=== PATIENT | male | born 1995 | race Caucasian/White ===

== ENCOUNTER 2022-11-01 11:35 | Emergency (ER) | payer SELFPAY ==
[2022-11-01 11:43] VITALS: BP 139/89; PULSE 87; RESP 16; TEMP 36.7; O2SAT 99
--- NOTE | 2022-11-01 11:45 | ECG_ITS ---
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 Measurements Intervals [place] Rate: 83 P: 74 MS: 140 QRS: 82 QRSD: 82 T: 50 QT: 342 QTc: 403 Interpretive Statements SINUS RHYTHM POSSIBLE RIGHT VENTRICULAR CONDUCTION DELAY [RSR (QR) IN V1/V2] No previous ECG available for comparison Electronically Signed On 11-01-2022 16:52:37 CDT by Pau Bang M.D. [id number]
--- NOTE | 2022-11-01 13:53 | XR_ITS ---
WS: [id number] XR chest 2V* [id number] REASON FOR EXAM: cp FINDINGS: The heart and the mediastinum are within normal limits. Calcified granulomatous disease in both hemithoraces. No active pulmonary parenchymal or pleural disease. Mild mid thoracic scoliosis convex right. XR/XR chest 2V* [id number] IMPRESSION: No acute chest abnormality.
--- NOTE | 2022-11-01 14:12 | ED_ITS ---
HPI - Chest Pain General: Chief Complaint: Chest Pain Stated Complaint: chest pain Time Seen by Provider: 11/01/22 13:53 History of Present Illness: Patient is a 27-year-old male comes to the ED with chest pain. Patient says chest pain has been going on now for about 2 weeks. He says the pain is constant and he describes it as a sharp throbbing pain that occurs both on the left and right side of his chest. Laying down causes worsening pain. He denies any other worsening or improving factors. He says he had an episode of chest pain like this before last year and it just went away on its own. Denies any known injury or trauma. Associated symptoms: Deny abdominal pain, dyspnea, fever(s), nausea, palpitations or vomiting Review of Systems Const: Denies: fever(s), chills or fatigue Eyes: Denies: change in vision or eye discomfort ENMT: Denies: throat pain, odynophagia, nasal discharge or nasal congestion Card: Reports: chest pain; Denies: palpitations, edema, swelling of feet/ankles, dyspnea on exertion or orthopnea Resp: Denies: dyspnea, productive cough or non-productive cough GI: Denies: abdominal pain, nausea, vomiting, diarrhea, constipation or hematochezia : Denies: flank pain, difficulty urinating, dysuria or hematuria Musc: Denies: neck pain, back pain or extremity swelling Skin/Breast: Denies: rash or new lesions Neuro: Denies: headache(s), numbness in extremities or weakness in extremities Physical Exam Const: COMMON NORMALS: patient oriented x3 HENMT: COMMON NORMALS: normocephalic HEAD & SCALP: normocephalic MOUTH: Normal oral and palatal mucosa present THROAT: posterior oropharynx normal and uvula midline Neck/C-Spine: COMMON NORMALS: supple GENERAL: Yes normal visual inspection Chest: CHEST: No tenderness Resp: COMMON NORMALS: normal respiratory effort, No retractions, No use of accessory muscles and clear to auscultation bilaterally AUSCULTATION: clear to auscultation bilaterally Cardio: COMMON NORMALS: regular rate, regular rhythm, S1 normal heart sound present, S2 normal heart sound present, No gallops present (Cardio), No clicks present (Cardio), No murmurs present (Cardio) and Peripheral pulses 2+ throughout RATE: regular rate RHYTHM: regular rhythm HEART SOUNDS: S1 normal heart sound present and S2 normal heart sound present PERIPHERAL PULS ES: Peripheral pulses 2+ throughout GI: COMMON NORMALS: Normal to inspection, nondistended, normoactive bowel sounds present, Soft to palpation, non-tender and no masses PALPATION: Yes Soft to palpation : COMMON NORMALS: Yes no CVA tenderness BLADDER/KIDNEY EXAM: Yes no CVA tenderness Back/Pelvis: COMMON NORMALS: no CVA tenderness Extremity: COMMON NORMALS: normal to inspection Neuro: COMMON NORMALS: patient oriented x3 GAIT: Yes Normal gait present Skin: GENERAL SKIN EXAM: dry skin Course Vital Signs: Vital signs: Vital Signs Temperature 98.0 F 11/01/22 11:43 Pulse Rate 87 11/01/22 11:43 Respiratory Rate 16 11/01/22 11:43 Blood Pressure 139/89 11/01/22 11:43 Pulse Oximetry 99 11/01/22 11:43 Oxygen Delivery Me thod Room Air 11/01/22 11:43 MDM - Chest Pain Medical Decision Making Patient is a 27-year-old male comes to the ED with chest pain. Patient says chest pain has been going on now for about 2 weeks. He says the pain is constant and he describes it as a sharp throbbing pain that occurs both on the left and right side of his chest. Laying down causes worsening pain. He denies any other worsening or improving factors. He says he had an episode of chest pain like this before last year and it just went away on its own. Denies any known injury or trauma. Vitals stable. Exam of patient is benign and he appears nontoxic in no acute distress or pain. Labs are unremarkable. Baseline troponin was normal. EKG showed normal sinus rhythm with no ST segment elevation or depression seen. Chest x-ray showed no acute findings. Patient was stable for discharge home and diagnosed with atypical chest pain. He was sent home with a prescription for Pepcid. Return ED precautions given. Follow- up with PCP in the next week for reevaluation. Patient understood and agreed with plan. Lab Data I reviewed the patient's lab results. 11/01/22 14:20 11/01/22 14:20 Radiology Impressions Chest X-Ray 11/01/22 13:53 IMPRESSION: No acute chest abnormality. Laboratory Results WBC 12.9 10^3/uL (4.0-10.0) H 11/01/22 14:20 RBC 4.99 10^6/uL (4.1-5.3) 11/01/22 14:20 Hgb 16.0 g/dL (11.7-16.6) 11/01/22 14:20 Hct 46.5 % (42.0-52.0) 11/01/22 14:20 MCV 93.2 fl (80-94) 11/01/22 14:20 MCH 32.1 pg (28.0-34.0) 11/01/22 14:20 MCHC 34.4 g/dL (30.0-36.0) 11/01/22 14:20 RDW 12.4 % (12.1-15.1) 11/01/22 14:20 Plt Count 301 10^3/cmm (130-400) 11/01/22 14:20 MPV 9.8 fL (7.4-10.4) 11/01/22 14:20 Neut % (Auto) 80.1 % 11/01/22 14:20 Lymph % (Auto) 12.7 % 11/01/22 14:20 [place] % (Auto) 6.4 % 11/01/22 14:20 Eos % (Auto) 0.3 % 11/01/22 14:20 Baso % (Auto) 0.3 % 11/01/22 14:20 Neut # (Auto) 10.34 10^3/uL (1.8-7.7) H 11/01/22 14:20 Lymph # (Auto) 1.6 10^3/uL (0.8-4.8) 11/01/22 14:20 [place] # (Auto) 0.8 10^3/uL (0.2-0.9) 11/01/22 14:20 Eos # (Auto) 0.0 10^3/uL (0.0-0.8) 11/01/22 14:20 Baso # (Auto) 0.0 10^3/uL (0.0-0.1) 11/01/22 14:20 Nucleated RBC % (auto) 0 % 11/01/22 14:20 Nucleated RBCs # 0.0 /100WBC 11/01/22 14:20 Sodium 139 mmol/L (136-145) 11/01/22 14:20 Potassium 3.9 mmol/L (3.5-5.1) 11/01/22 14:20 Chloride 101 mmol/L (98-107) 11/01/22 14:20 Carbon Dioxide 27 mmol/L (22-29) 11/01/22 14:20 Anion Gap 14.9 (5-19) 11/01/22 14:20 BUN 11 mg/dL (6-20) 11/01/22 14:20 Creatinine 0.8 mg/dL (0.7-1.2) 11/01/22 14:20 GFR Calculation 117.8 mL/min (90-130) 11/01/22 14:20 Glucose 109 mg/dL (65-115) 11/01/22 14:20 Calculated Osmolality 288 mOsm/kg (285-295) 11/01/22 14:20 Calcium 9.7 mg/dL (8.5-10.5) 11/01/22 14:20 Troponin T Gen 5 ng/L 6 ng/L (0-15) 11/01/22 14:20 EKG Data EKG 1: EKG interpretation date: 11/01/22 Interpretation: Normal sinus rhythm, 83 bpm, no ST segment elevation or depression seen. Discharge Plan Discharge Patient Disposition: Home Clinical Impression: Atypical chest pain Condition: Stable Prescriptions: New Pepcid 20 mg tablet 20 mg PO BID 42 Days Qty: 84 0RF Discharge Orders: Discharge ED (Routine); Ordered 11/01/22 Ordered By: Ken Yanez Discharge Diet: Regular Discharge Activity: Increase activity as tolerated Patient Instructions: Noncardiac Chest Pain (ED) Activity Restrictions/Additional Instructions: Follow-up with medical provider as directed in the next 7 to 10 days for reevaluation. Take medications as prescribed. Return to the ER or your medical provider if condition worsens. Please read and understand discharge instructi ons. Thank you for choosing [facility] for your healthcare needs today. Please realize this is an emergency room and that we are providing you with a medical screening exam and this may not be complete and all inclusive of all the testing and or work up that you may need to determine your ailment or severity of your illness. It is very important that you follow up as instructed or that you return to the Emergency Department should you have concerns or if your condition changes or worsens in any way. Coding Level of Care Code ED Steam Shovel Operating Engineer for Toñito Dixon
[2022-11-01] MEDS: ketorolac 60 mg/2 mL INJ IM (14:18)
[2022-11-01 14:38] LABS: Basophils % 0.3 %; Eosinophils % 0.3 %; Hematocrit 46.5 % (42.0-52.0); Lymphocytes # 1.6 10^3/uL (0.8-4.8); Lymphocytes % 12.7 %; Mean Corpuscular HGB Conc 34.4 g/dL (30.0-36.0); Mean Corpuscular Hemoglobin 32.1 pg (28.0-34.0); Mean Corpuscular Volume 93.2 fl (80-94); Mean Platelet Volume 9.8 fL (7.4-10.4); Monocytes # 0.8 10^3/uL (0.2-0.9); Monocytes % 6.4 %; Neutrophils # 10.34 10^3/uL (1.8-7.7); Neutrophils % 80.1 %; Nucleated Red Blood Cells % 0 %; Platelet Count 301 10^3/cmm (130-400); Red Blood Count 4.99 10^6/uL (4.1-5.3); Red Cell Distribution Width 12.4 % (12.1-15.1); White Blood Count 12.9 10^3/uL (4.0-10.0)
--- NOTE | 2022-11-01 14:46 | PC.NURSE ---
Addendum entered by Del Denis RN 11/01/22 14:46: out with radiology Original Note: patient is not in room
[2022-11-01 14:53] LABS: Anion Gap 14.9 (5-19); Blood Urea Nitrogen 11 mg/dL (6-20); Calcium 9.7 mg/dL (8.5-10.5); Carbon Dioxide 27 mmol/L (22-29); Chloride 101 mmol/L (98-107); Glomerular Filtration Rate 117.8 mL/min (90-130); Glucose 109 mg/dL (65-115); Osmolality Calculated 288 mOsm/kg (285-295); Potassium 3.9 mmol/L (3.5-5.1); Sodium 139 mmol/L (136-145)
[2022-11-01 14:58] LABS: Troponin T (5th) Once 6 ng/L (0-15)
--- NOTE | 2022-11-05 12:04 | DCPLANNER ---
recreation establishment manager called patient due to no primary care physician - no answer at this time
== END 2022-11-01 15:46 | disposition home or self-care (01) ==
PROVIDERS: Emergency Provider Physician Assistant
DX: R07.89 Other chest pain (principal)
CPT/HCPCS: 36415; 71046; 80048; 84484; 85025; 93005; 96372; 99285; J1885

== ENCOUNTER 2024-08-14 18:35 | Emergency (ER) | payer SELFPAY ==
--- NOTE | 2024-08-14 18:36 | XRR_ITS ---
PROCEDURE INFORMATION: Exam: XR Abdomen Exam date and time: 08/14/2024 6:44 PM Age: 28 years old Clinical indication: Constipation TECHNIQUE: Imaging protocol: Radiologic exam of the abdomen. Views: Frontal supine view of the abdomen. 1 View. COMPARISON: CR (CHEST, ) 08/14/2024 6:43 PM FINDINGS: Gastrointestinal tract: Normal. No bowel dilation. Bones/joints: Unremarkable. XR/XR KUB [id number] IMPRESSION: No acute findings.
--- NOTE | 2024-08-14 18:36 | XRR_ITS ---
PROCEDURE INFORMATION: Exam: XR Chest Exam date and time: 08/14/2024 6:43 PM Age: 28 years old Clinical indication: Pain; Chest pressure; Additional info: Cp TECHNIQUE: Imaging protocol: Radiologic exam of the chest. Views: 1 view. COMPARISON: CR XR chest 2V* [id number] 11/01/2022 2:44 PM FINDINGS: Lungs: Unremarkable. No consolidation. Pleural spaces: Unremarkable. No pleural effusion. No pneumothorax. Heart/Mediastinum: Unremarkable. No cardiomegaly. Bones/joints: Unremarkable. XR/XR chest 1V portable [id number] IMPRESSION: No acute findings.
--- NOTE | 2024-08-14 18:39 | ECG_ITS ---
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 Measurements Intervals [place] Rate: 73 P: 60 HI: 138 QRS: 66 QRSD: 96 T: 29 QT: 365 QTc: 402 Interpretive Statements SINUS RHYTHM WITH SINUS ARRHYTHMIA Compared to ECG 11/01/2022 11:49:05 No significant changes Electronically Signed On 08-15-2024 12:32:13 CDT by Donnie Fernandez M.D. [email or web address] [id number]
[2024-08-14 18:41] VITALS: BP 137/78; PULSE 80; RESP 16; TEMP 36.7; O2SAT 99; BMI 21.6
--- NOTE | 2024-08-14 18:43 | ED_ITS ---
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 Associated Symptoms: Denies chills, diarrhea, fever(s), nausea and vomiting Related Data Previous Rx's ?Medication ?Instructions ?Recorded pantoprazole 40 mg tablet,delayed 40 mg PO DAILY #60 t abs 08/14/24 release (Protonix) Allergies Allergy/AdvReac Type Severity Reaction Status Date / Time No Known Allergies Allergy Verified 08/14/24 18:44 Review of Systems 2 Const: Denies: fever(s), chills, body aches or change in appetite ENMT: Denies: throat pain or dental pain Card: Reports: chest pain Resp: Denies: dyspnea GI: Reports: abdominal pain; Denies: nausea, vomiting or diarrhea Musc: Denies: neck pain or back pain Skin/Breast: Denies: rash Neuro: Denies: headache(s) Physical Exam 2 Const: COMMON NORMALS: no acute distress, patient oriented x3 and healthy appearing HENMT: COMMON NORMALS: normocephalic and atraumatic HEAD & SCALP: n ormocephalic and atraumatic Neck/C-Spine: COMMON NORMALS: full ROM and supple Chest: COMMONS NORMALS: normal inspection of the chest Resp: COMMON NORMALS: normal respiratory effort Cardio: COMMON NORMALS: regular rate, regular rhythm and No murmurs present (Cardio) RATE: regular rate RHYTHM: regular rhythm GI: COMMON NORMALS: Normal to inspection, nondistended, normoactive bowel sounds present, Soft to palpation, non-tender and no masses PALPATION: Yes Soft to palpation Extremity: COMMON NORMALS: normal to inspection and full ROM Neuro: COMMON NORMALS: patient oriented x3, moves all extremities and no focal motor deficits Psych: COMMON NORMALS: mental status grossly normal, Normal thought process present and cooperative THOUGHT PROCESS: Normal thought process present Skin: COMMON NORMALS: no rashes or lesions noted and no wounds GENERAL SKIN EXAM: no rashes or lesions noted Course 2 Vital Signs: Vital signs: Vital Signs Temperature 98.0 F 08/14/24 18:41 Pulse Rate 69 08/14/24 19:07 Respiratory Rate 16 08/14/24 19:07 Blood Pressure 122/84 08/14/24 19:07 Pulse Oximetry 98 08/14/24 19:07 Oxygen Delivery Me thod Room Air 08/14/24 19:07 MDM - Abdominal Pain Medical Decision Making Patient presents here with abdominal pain is likely gastritis his blood work exam here is benign we will place him on Protonix has a follow-up with PCP return if worsening. Medical Records I reviewed the patient's medical records. Lab Data I reviewed the patient's lab results. 08/14/24 18:49 08/14/24 18:49 Labs/Radiology: Laboratory Results WBC 8.05 10^3/uL (3.29-11.43) 08/14/24 18:49 RBC 4.63 10^6/uL (3.85-5.65) 08/14/24 18:49 Hgb 15.10 g/dL (11.27-16.99) 08/14/24 18:49 Hct 42.6 % (37-53) 08/14/24 18:49 MCV 92.0 fl (82-101) 08/14/24 18:49 MCH 32.6 pg (27-33) 08/14/24 18:49 MCHC 35.4 g/dL (30-55) 08/14/24 18:49 RDW 12.2 % (12.1-15.1) 08/14/24 18:49 Plt Count 258 10^3/cmm (157-399) 08/14/24 18:49 MPV 10.2 fL (7.4-10.4) 08/14/24 18:49 Neut % (Auto) 58.0 % 08/14/24 18:49 Lymph % (Auto) 31.8 % 08/14/24 18:49 [place] % (Auto) 8.4 % 08/14/24 18:49 Eos % (Auto) 1.2 % 08/14/24 18:49 Baso % (Auto) 0.4 % 08/14/24 18:49 Neut # (Auto) 4.66 10^3/uL (1.8-7.7) 08/14/24 18:49 Lymph # (Auto) 2.6 10^3/uL (0.8-4.8) 08/14/24 18:49 [place] # (Auto) 0.7 10^3/uL (0.2-0.9) 08/14/24 18:49 Eos # (Auto) 0.1 10^3/uL (0.0-0.8) 08/14/24 18:49 Baso # (Auto) 0.0 10^3/uL (0.0-0.1) 08/14/24 18:49 Nucleated RBC % (auto) 0 % 08/14/24 18:49 Nucleated RBCs # 0.0 /100WBC 08/14/24 18:49 Sodium 138 mmol/L (136-145) 08/14/24 18:49 Potassium 3.9 mmol/L (3.5-5.1) 08/14/24 18:49 Chloride 100 mmol/L (98-107) 08/14/24 18:49 Carbon Dioxide 25 mmol/L (22-29) 08/14/24 18:49 Anion Gap 16.9 (5-19) 08/14/24 18:49 BUN 14 mg/dL (6-20) 08/14/24 18:49 Creatinine 0.9 mg/dL (0.7-1.2) 08/14/24 18:49 GFR Calculation 102.0 mL/min (90-130) 08/14/24 18:49 Glucose 116 mg/dL (65-115) H 08/14/24 18:49 Calculated Osmolality 287 mOsm/kg (285-295) 08/14/24 18:49 Calcium 9.5 mg/dL (8.5-10.5) 08/14/24 18:49 Total Bilirubin 0.3 mg/dL (0.15-1.2) 08/14/24 18:49 AST 16 U/L (0-40) 08/14/24 18:49 ALT 11 U/L (0-41) 08/14/24 18:49 Alkaline Phosphatase 91 U/L (40-130) 08/14/24 18:49 Total Protein 7.3 g/dL (6.6-8.7) 08/14/24 18:49 Albumin 4.6 g/dL (3.5-5.2) 08/14/24 18:49 Globulin 2.7 g/dL (1.3-4.6) 08/14/24 18:49 Lipase 25 U/L (13-60) 08/14/24 18:49 All radiology interpretation(s) finalized by discharge EKG Data EKG 1: I personally reviewed and interpreted this EKG as follows: EKG interpretation date: 08/14/24 EKG interpretation time: 18:39 Interpretation: nsr hr [address] elevation qrs 96 qtc 390 Discharge Plan Discharge Patient Disposition: Home Clinical Impression: Abdominal pain Condition: Stable Prescriptions: New pantoprazole [Protonix] 40 mg tablet,delayed release (DR/EC) 40 mg PO DAILY Qty: 60 0RF Discharge Orders: Discharge ED (Routine); Ordered 08/14/24 Ordered By: Antwan Monk Discharge Diet: Advance as tolerated Discharge Activity: Resume usual activity Patient Instructions: Abdominal Pain (ED) Print Language: Luxembourgish Coding Level of Care Code ED Medical Administrative Technician for Toñito Dixon
[2024-08-14 18:59] LABS: Basophils % 0.4 %; Eosinophils # 0.1 10^3/uL (0.0-0.8); Eosinophils % 1.2 %; Hematocrit 42.6 % (37-53); Lymphocytes # 2.6 10^3/uL (0.8-4.8); Lymphocytes % 31.8 %; Mean Corpuscular HGB Conc 35.4 g/dL (30-55); Mean Corpuscular Hemoglobin 32.6 pg (27-33); Mean Platelet Volume 10.2 fL (7.4-10.4); Monocytes # 0.7 10^3/uL (0.2-0.9); Monocytes % 8.4 %; Neutrophils # 4.66 10^3/uL (1.8-7.7); Nucleated Red Blood Cells % 0 %; Platelet Count 258 10^3/cmm (157-399); Red Blood Count 4.63 10^6/uL (3.85-5.65); Red Cell Distribution Width 12.2 % (12.1-15.1); White Blood Count 8.05 10^3/uL (3.29-11.43)
[2024-08-14] MEDS: lidocaine 2% viscous 15 ML, aluminum-mag hydrox-simethicon 30 ML, sucralfate oral liq 1 GM PO (19:01)
[2024-08-14] MEDS: ondansetron 2 mg/ML SDV 2 mL 4 MG IM (19:01)
[2024-08-14 19:07] VITALS: BP 122/84; PULSE 69; RESP 16; O2SAT 98
[2024-08-14 19:14] LABS: Alanine Aminotransferase 11 U/L (0-41); Albumin Level 4.6 g/dL (3.5-5.2); Alkaline Phosphatase 91 U/L (40-130); Aspartate Amino Transferase 16 U/L (0-40); Blood Urea Nitrogen 14 mg/dL (6-20); Calcium 9.5 mg/dL (8.5-10.5); Carbon Dioxide 25 mmol/L (22-29); Chloride 100 mmol/L (98-107); Globulin 2.7 g/dL (1.3-4.6); Glucose 116 mg/dL (65-115); Lipase 25 U/L (13-60); Osmolality Calculated 287 mOsm/kg (285-295); Sodium 138 mmol/L (136-145); Total Bilirubin 0.3 mg/dL (0.15-1.2); Total Protein 7.3 g/dL (6.6-8.7)
[2024-08-14 19:25] LABS: Anion Gap 16.9 (5-19); Potassium 3.9 mmol/L (3.5-5.1)
[2024-08-14 19:55] VITALS: BP 114/68; PULSE 71; RESP 16; O2SAT 98
== END 2024-08-14 19:59 | disposition home or self-care (01) ==
PROVIDERS: Emergency Provider Emergency Medicine
DX: R10.9 Unspecified abdominal pain (principal)
CPT/HCPCS: 71045; 74018; 80053; 83690; 85025; 93005; 96372; 99285; J2405; J9999